=== PATIENT | male | born 1950 | race Caucasian/White ===

== ENCOUNTER 2016-12-22 15:33 | Emergency (ER) | payer MEDICARE, OTHER | END 2016-12-22 16:59 | disposition home or self-care (01) | LOC: FER 15:33 | DX: S01.01XA Laceration without foreign body of scalp, initial encounter (principal); J44.9 Chronic obstructive pulmonary disease, unspecified; Z85.46 Personal history of malignant neoplasm of prostate; Z79.51 Long term (current) use of inhaled steroids; W22.09XA Striking against other stationary object, initial encounter; Y92.009 Unspecified place in unspecified non-institutional (private) residence as the place of occurrence of the external cause ==

== ENCOUNTER 2017-01-15 19:39 | Emergency (ER) | payer MEDICARE, OTHER ==
[2017-01-15 21:35] LABS: BASOPHIL 0.2 % (0-2); HCT 42.6 % (42.0-52.0); HGB 14.6 g/dl (13.2-18.0); LYMPHOCYTE 11.9 % (15-48); MCH 30.7 pg (25.0-31.0); MCHC 34.3 g/dL (32.0-36.0); MCV 89.5 fL (78.0-100.0); MONOCYTE 10.2 % (0-12); MPV 8.7 fL (6.0-9.5); NEUTROPHIL 74.7 % (41-80); PLT 412 K/uL (150-400); RBC 4.76 M/uL (4.70-6.00); RDW 12.8 % (11.5-14.0); WBC 12.5 K/uL (4.0-10.5)
[2017-01-15 21:57] LABS: BILIRUBIN - TOTAL 0.8 mg/dL (0.1-1.0); GLOBULIN (CALCULATION) 3.1 g/dL (2.2-4.2); POTASSIUM 4.8 mmol/L (3.5-5.1); TOTAL PROTEIN 7.1 g/dL (6.4-8.3)
[2017-01-15 22:03] LABS: CKMB 1.57 ng/mL (0.97-4.94); PRO-BNP 88 pg/mL (0-125); TROPONIN T < 0.010 ng/mL
== END 2017-01-16 02:08 | disposition home or self-care (01) ==
LOC: FER 19:39
PROVIDERS: Physician Assistant Medical
DX: J44.1 Chronic obstructive pulmonary disease with (acute) exacerbation (principal); I10 Essential (primary) hypertension; Z85.46 Personal history of malignant neoplasm of prostate; Z98.890 Other specified postprocedural states; Z88.1 Allergy status to other antibiotic agents; Z88.2 Allergy status to sulfonamides; Z87.891 Personal history of nicotine dependence; Z79.51 Long term (current) use of inhaled steroids; Z79.899 Other long term (current) drug therapy
CPT/HCPCS: 36415; 36600; 71020; 80053; 82550; 82553; 82803; 83880; 84484; 85025; 85379; 93005; 94640; 94760; J2930